=== PATIENT | male | born 2005 | race Caucasian/White ===

== ENCOUNTER 2025-04-25 16:55 | Emergency (ER) | payer SELFPAY ==
[2025-04-25 16:59] VITALS: BP 144/87; PULSE 115; RESP 18; TEMP 35.5; O2SAT 100
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
--- NOTE | 2025-04-25 17:10 | CT_ITS ---
PROCEDURE: BRAIN/HEAD WITHOUT CONTRAST; SPINE CERVICAL WITHOUT CONTRAS 04/25/2025 REASON FOR EXAM: HEAD TRAUMA; NECK TRAUMA TECHNIQUE: Procedure Code: CTBR; CTSPC Modality: CT Procedure: BRAIN/HEAD WITHOUT CONTRAST; SPINE CERVICAL WITHOUT CONTRAS Coronal and Sagittal reconstruction series were provided. One or more dose reduction techniques were used (e.g., Automated exposure control, adjustment of the mA and/or kV according to patient size, use of iterative reconstruction technique. COMPARISON: None available. FINDINGS: There is no extra-axial or intra-axial intracranial hemorrhage. No mass effect or midline shift is seen. The ventricles, sulci, and cisterns are normal in size and shape for the patient's age. There is normal garvey-white matter differentiation. The posterior fossa is grossly unremarkable. The skull is unremarkable. Opacification of the right frontal and bilateral ethmoid sinuses. The remaining visualized paranasal sinuses are clear. The mastoid air cells show normal translucency. The cervical alignment is intact. No acute cervical spine fracture is identified. The vertebral body heights are intact. No suspicious osseous lesions are identified. The craniocervical junction appears intact. There is no prevertebral soft tissue swelling. No significant degenerative changes are identified. The visualized lung apices are unremarkable. CT/Brain/Head without Contrast IMPRESSION: 1. No intracranial hemorrhage. No mass effect or midline shift. 2. No evidence of acute cervical spine fracture or malalignment. Reading Location[facility]
--- NOTE | 2025-04-25 17:10 | RAD_ITS ---
PROCEDURE: SHOULDER MIN 2 VIEWS 04/25/2025 REASON FOR EXAM: RIGHT SHOULDER PAIN TECHNIQUE: Procedure Code: RADSH Modality: DX Procedure: SHOULDER MIN 2 VIEWS Laterality: Right COMPARISON: None available. FINDINGS: Bones: No acute fractures or dislocations. Joints: Normal alignment of the acromioclavicular and glenohumeral joints. Soft tissues: Soft tissues are unremarkable. Other: Visualized lung baumann are unremarkable. RAD/Shoulder min 2 Views IMPRESSION: NO ACUTE FRACTURE OR DISLOCATION. Reading Location: [facility]
--- NOTE | 2025-04-25 17:10 | CT_ITS ---
PROCEDURE: BRAIN/HEAD WITHOUT CONTRAST; SPINE CERVICAL WITHOUT CONTRAS 04/25/2025 REASON FOR EXAM: HEAD TRAUMA; NECK TRAUMA TECHNIQUE: Procedure Code: CTBR; CTSPC Modality: CT Procedure: BRAIN/HEAD WITHOUT CONTRAST; SPINE CERVICAL WITHOUT CONTRAS Coronal and Sagittal reconstruction series were provided. One or more dose reduction techniques were used (e.g., Automated exposure control, adjustment of the mA and/or kV according to patient size, use of iterative reconstruction technique. COMPARISON: None available. FINDINGS: There is no extra-axial or intra-axial intracranial hemorrhage. No mass effect or midline shift is seen. The ventricles, sulci, and cisterns are normal in size and shape for the patient's age. There is normal garvey-white matter differentiation. The posterior fossa is grossly unremarkable. The skull is unremarkable. Opacification of the right frontal and bilateral ethmoid sinuses. The remaining visualized paranasal sinuses are clear. The mastoid air cells show normal translucency. The cervical alignment is intact. No acute cervical spine fracture is identified. The vertebral body heights are intact. No suspicious osseous lesions are identified. The craniocervical junction appears intact. There is no prevertebral soft tissue swelling. No significant degenerative changes are identified. The visualized lung apices are unremarkable. CT/Spine Cervical without Contras IMPRESSION: 1. No intracranial hemorrhage. No mass effect or midline shift. 2. No evidence of acute cervical spine fracture or malalignment. Reading Location[facility]
--- NOTE | 2025-04-25 17:14 | RAD_ITS ---
PROCEDURE: KNEE 4 OR MORE VIEWS 04/25/2025 REASON FOR EXAM: KNEE PAIN TECHNIQUE: Procedure Code: RADKN Modality: DX Procedure: KNEE 4 OR MORE VIEWS Laterality: Bilateral COMPARISON: None available. FINDINGS: Bones: No fracture. No suspicious bone lesion. Joints: Normal alignment. No significant degenerative changes. Effusion: No effusion. Soft tissues: Soft tissues are unremarkable. RAD/Knee 4 or More Views IMPRESSION: NO EFFUSION ACUTE FRACTURE OR DISLOCATION. Reading Location: [facility]
--- NOTE | 2025-04-25 17:14 | RAD_ITS ---
PROCEDURE: KNEE 4 OR MORE VIEWS 04/25/2025 REASON FOR EXAM: KNEE PAIN TECHNIQUE: Procedure Code: RADKN Modality: DX Procedure: KNEE 4 OR MORE VIEWS Laterality: Bilateral COMPARISON: None available. FINDINGS: Bones: No fracture. No suspicious bone lesion. Joints: Normal alignment. No significant degenerative changes. Effusion: No effusion. Soft tissues: Soft tissues are unremarkable. RAD/Knee 4 or More Views IMPRESSION: NO EFFUSION ACUTE FRACTURE OR DISLOCATION. Reading Location: [facility]
[2025-04-25] MEDS: fentaNYL 100 MCG/2 ML Ampul 50 MCG IV (17:28)
--- OUTSIDE RECORDS SUMMARY | 2025-04-25 17:42 | XMS RPT_ITS | CCD ---
Author Organization [facility]ini[facility] Care Team Providers Care Stave Hewer Name Role Phone Lele Garrido Attending Unavailable Care Physician, No Primary Primary Care Unava ilable SeeLele ingram Attending Unavailable Care Physician, No Primary Primary Care Unava ilable Lele Garrido Attending Unavailable Care Physician, No Primary Primary Care Unava ilable Lele Garrido Attending Unavailable Care Physician, No Primary Primary Care Unava ilable Care Physician, No Primary Primary Care Unava ilable Lele Garrido Attending Unavailable SeeLele ingram Attending Unavailable Care Physician, No Primary Primary Care Unava ilable Lele Garrido Attending Unavailable Care Physician, No Primary Primary Care Unava ilable SeeLele ingram Attending Unavailable Care Physician, No Primary Primary Care Unava ilable Lele Garrido Attending Unavailable Care Physician, No Primary Primary Care Unava ilable Problems Problem Classification Problem Date Documented Da te Episodic/Chronic Adjustment disorders (1 source) Adjustment disorder, unspecified; Translations: [Adjustment disorder, unspecified] Onset: 10-23-2023 Chronic Anxiety disorders (1 source) Generalized anxiety disorder; Translations: [Generalized anxiety disorder] Onset: 10-23-2023 Chronic Results Test Name Value Interpretation Reference Range Facil ity MR/BMS.BPon 11-26-2023 MR/BMS.BP [facility] [address], [address] [place] [address] OFFICE VISIT Date of Service: 11/26/23 MR#: [id number] Acct: [id number] Name: Leo Feilz Rep #: [id number] : 2005 Provider: Dr. Lele Dixon se, DO Age/Sex: 18/M Location: [facility].BP Status: Signed Intake Vital Signs 10/23/23 15:08 11/26/23 14:33 05/06/24 14:37 Height 5 ft 11 in 5 ft 11 in 5 ft 11 in BP 134/73 H Blood Pressure Location Rt brachial Position Sitting Pulse 108 H Pulse Source Monitor BP Intake Visit Reasons: 6 wk FU Silver Plater Required: No Accompanied by: Self Is patient in pain?: No Allergies No Known Allergies Allergy (Verified 11/26/23 14:38) Medications bupropion HCl 150 mg tablet,12 hr sustained-release 150 mg PO BID #60 ea 10/23/23 [Rx Confirmed 11/26/23] Nurse's Note: Presents to the office today for follow up. [facility] Medical History Adjustment disorder Allergies DAVID (generalized anxiety disorder) Headache History of emotional problems Vision problems Family History Other Alcoholism Anxiety Bleeding disorder CVA (cerebral vascular accident) Cancer Colon cancer Depression Hypertension Myocardial infarction Social History Smoking Status: Never smoker alcohol intake: current details: Occasional beer or liquor substance use type: marijuana HPI History of Present Illness History provided by: patient HPI: Leo Feliz is a 18 year old who presents today for follow up evaluation. Patient reports that they have picked up a few more days at work and has been covering for others when possible. Has enjoyed work and finds that it leads to better days. Finds that mood has been alright. Has been somewhat inconsistent when waking up too late or going to bed too early. Feels like it was better than XL version. Has had two appointments with [facility]. First appointment was all paperwork, and second appointment became overstimulated. This was in October, and has not heard back from them since. Was recommended to bring mom to next appointment. Denies any recent self harm. When playing with cat, the cat does scratch Leo and they don't do anything to stop from happening. Sleep has been somewhat worse but unsure why. Part might be due to playing more [employer]. Has stopped following at [facility]. Has been doing somewhat better in regards to sharing mood with others. Did spend some more one on one time with dad recently without mom near by, and this was positive. Still having some significant depersonalization but has been able to recognize it is happening most of the time. Review of Systems Constitutional Denies: fever(s), chills, change in weight or fatigue Eyes Denies: change in vision or blurry vision Ears, Nose, Mouth, Throat Denies: throat pain, neck pain or change in hearing Cardiovascular Denies: chest pain, palpitations or dyspnea Respiratory Denies: dyspnea, cough or wheezing Gastrointestinal Denies: abdominal pain, nausea, vomiting, diarrhea or constipation Genitourinary Denies: dysuria or urinary frequency Musculoskeletal Denies: back pain, neck pain, joint pain or muscle weakness Integumentary/Breast Denies: rash or new lesions Neurological Denies: headache(s), dizziness or confusion Endocrine Denies: fatigue or excessive sweating Hematologic/Lymphatic Denies: easy bruising or easy bleeding Allergic/Immunologic Denies: wheezing Exam Mental Status Exam - Psych Appearance casually dressed and unkempt Attitude cooperative Activity/Motor Behavior limited eye contact Speech regular rate, regular volume and regular prosody Mood other (better) Affect full range Thought Process logical, coherent, loose associations and derailment Thought Content no delusions and no hallucinations Suicidal Ideation none Homicidal Ideation none Attention impaired Concentration intact Sensorium/Orientation awake, alert and oriented x3 Memory/Cognition other (appropriate for stated age) Insight fair Judgement fair Exam Constitutional Documenting provider has reviewed patient's vital signs: yes Common normals: no acute distress, patient oriented x3 and alert General appearance: well developed Neuro Common normals: patient oriented x3 Sensorium/orientation: alert Gait (neuro): normal gait Assessment Plan Assessment Plan (1) DAVID (generalized anxiety disorder): Plan: - Awaiting neuropsych workup -Doing better with Wellbutrin SR twice a day; mood symptoms have largely been controlled (2) Adjustment disorder: Plan: - Continues to have intermittent mood concerns secondary to gender identity and other people in life (more content not included)... Normal [facility] MR/BMS.BPon 10-23-2023 MR/BMS.BP [address], [address] [place] [id number] OFFICE VISIT Date of Service: 10/23/23 MR#: [id number] Acct: [id number] Name: Leo Feliz Rep #: [id number] : 2005 Provider: Dr. Lele Dixon se, DO Age/Sex: 18/M Location: [facility].BP Status: Signed Intake Vital Signs 10/04/23 11:35 10/23/23 15:06 10/23/23 15:08 Height 5 ft 11 in 5 ft 11 in 5 ft 11 in BP 159/66 H 126/78 H Blood Pressure Location Rt brachial Rt brachial Position Sitting Sitting Pulse 126 H 113 H Pulse Source Monitor Monitor BP Intake Visit Reasons: Discuss med Silver Plater Required: No Accompanied by: Self Is patient in pain?: No Allergies No Known Allergies Allergy (Verified 10/23/23 15:07) Medications bupropion HCl 150 mg tablet,12 hr sustained-release 150 mg PO BID #60 ea 10/23/23 [Rx Confirmed 10/23/23] Nurse's Note: Presents to the office today to discuss medications. PFSH Medical History Adjustment disorder Allergies DAVID (generalized anxiety disorder) Headache History of emotional problems Vision problems Family History Other Alcoholism Anxiety Bleeding disorder CVA (cerebral vascular accident) Cancer Colon cancer Depression Hypertension Myocardial infarction Social History Smoking Status: Never smoker alcohol intake: current details: Occasional beer or liquor substance use type: marijuana HPI History of Present Illness History provided by: patient HPI: Leo Feliz is a 18 year old who presents today for new patient evaluation. Patient reports to seeing neighbor's truck blow up prior to appointment today. Finds that things have been shaky. Admits to feeling out of whack recently. Gives example of ordering food, having to wait to tow picker, and when they went home to eat, started getting overheated. States that everything got intense and smacked couch and self a few times in frustration. Used to be much more prevalent in the past in regards to self hitting. Admits to crying and asking God why can't I just eat one time. Feels like mood is very off or on. Has also been feeling more short breath. Has been following at [facility] and feels like therapist is focusing on smoking marijuana rather than gender identity or concern for autism spectrum. Leo thinks that therapist is focusing on this even when patient is 100% sober. Has been sleeping more hours than previously. Found out that they cannot be rehired at [facility]. Did have an interview at [employer] yesterday. Continues to have some intermittent depersonalization. Feels as though it may even happen more frequent than initially thought. Review of Systems Constitutional Denies: fever(s), chills, change in weight or fatigue Eyes Denies: change in vision or blurry vision Ears, Nose, Mouth, Throat Denies: throat pain, neck pain or change in hearing Cardiovascular Denies: chest pain, palpitations or dyspnea Respiratory Denies: dyspnea, cough or wheezing Gastrointestinal Denies: abdominal pain, nausea, vomiting, diarrhea or constipation Genitourinary Denies: dysuria or urinary frequency Musculoskeletal Denies: back pain, neck pain, joint pain or muscle weakness Integumentary/Breast Denies: rash or new lesions Neurological Denies: headache(s), dizziness or confusion Endocrine Denies: fatigue or excessive sweating Hematologic/Lymphatic Denies: easy bruising or easy bleeding Allergic/Immunologic Denies: wheezing Exam Mental Status Exam - Psych Appearance unkempt Attitude cooperative Activity/Motor Behavior fidgeting and limited eye contact Speech regular rate, regular volume and regular prosody Mood other (out of whack) Affect constricted Thought Process logical, coherent, loose associations and derailment Thought Content no delusions and no hallucinations Suicidal Ideation none Homicidal Ideation none Attention impaired Concentration intact Sensorium/Orientation awake, alert and oriented x3 Memory/Cognition other (appropriate for stated age) Insight fair Judgement fair Assessment Plan Assessment Plan (1) DAVID (generalized anxiety disorder): Plan: - Worsening mood symptoms with reduction, will increase to 150 mg wellbutrin SR BID. Hopefully BID dosing allows for improvement in cognitive symptoms and also improve mood symptoms - Rule out ADHD?, ASD?; Has neuropsych scheduled - Patient was informed of the risks, benefits and likely side effects of Wellbutrin. These side effects include but are not limited to appetite suppression, headache, diaphoresis, tachycardia, nausea, and insomnia. Wellbutrin can lower the seizure threshold, if you have a history of sei (more content not included)... Normal [facility] MR/BMS.BPon 10-04-2023 MR/BMS.BP [facility] [address] [place] [address] OFFICE VISIT Date of Service: 10/04/23 MR#: [id number] Acct: [id number] Name: Leo Feliz Rep #: [id number] : 2005 Provider: Dr. Lele Dixon se, DO Age/Sex: 17/M Location: [facility]BP Status: Signed Intake Vital Signs 07/04/23 11:41 10/04/23 11:35 10/04/23 11:35 Height 5 ft 11 in 5 ft 11 in 5 ft 11 in BP 159/66 H Blood Pressure Location Rt brachial Position Sitting Pulse 126 H Pulse Source Monitor BP Intake Visit Reasons: 3 M FU Silver Plater Required: No Accompanied by: Self Allergies No Known Allergies Allergy (Verified 07/04/23 11:41) Medications bupropion HCl 150 mg 24 hr tablet, extended release 150 mg PO QAM #30 tabs 10/04/23 [Rx Confirmed 10/04/23] Current gender identity: male Nurse's Note: Presents to the office today for follow up. PFSH Medical History Adjustment disorder Allergies DAVID (generalized anxiety disorder) Headache History of emotional problems Vision problems Family History Other Alcoholism Anxiety Bleeding disorder CVA (cerebral vascular accident) Cancer Colon cancer Depression Hypertension Myocardial infarction Social History Smoking Status: Never smoker alcohol intake: current details: Occasional beer or liquor substance use type: marijuana HPI History of Present Illness History provided by: patient HPI: Leo Feliz is an 17 year old who presents today for follow up evaluation. Patient is fairly disjointed and sometimes abruptly stop recounting history throughout encounter. Did recently have some stress going down to [place] helping sister out. They do not elaborate on what this means but does state that it was stressful. Does have an upcoming Neuropsych appointment scheduled in October. Has not contacted [facility] regarding gender affirming care yet. Finds that things have been not the best. Is trying to go back to [employer] since the person who they had issues with is gone. Quit [employer] about a month and a half ago. Has been staying with Phan, a friend. Has had a poor relationship with sister's boyfriend recently. Mother does not know that they quit [employer], and believes Leo had been working until yesterday. States that they didn't tell mom, because they don't want to disappoint her anymore or make her frustrated at them. Feels like they are not socializing as much as before. Has been taking Wellbutrin every day, and has felt that maybe they have been more paranoid. Described more as depersonalization, seeing themselves from others point of view. Review of Systems Constitutional Denies: fever(s), chills, change in weight or fatigue Eyes Denies: change in vision or blurry vision Ears, Nose, Mouth, Throat Denies: throat pain, neck pain or change in hearing Cardiovascular Denies: chest pain, palpitations or dyspnea Respiratory Denies: dyspnea, cough or wheezing Gastrointestinal Denies: abdominal pain, nausea, vomiting, diarrhea or constipation Genitourinary Denies: dysuria or urinary frequency Musculoskeletal Denies: back pain, neck pain, joint pain or muscle weakness Integumentary/Breast Denies: rash or new lesions Neurological Denies: headache(s), dizziness or confusion Endocrine Denies: fatigue or excessive sweating Hematologic/Lymphatic Denies: easy bruising or easy bleeding Allergic/Immunologic Denies: wheezing Exam Mental Status Exam - Psych Appearance unkempt Attitude other (Somewhat aloof) Activity/Motor Behavior fidgeting and limited eye contact Speech regular rate, regular volume and regular prosody Mood other (Stressed) Affect constricted Thought Process logical, coherent, loose associations and derailment Thought Content no delusions and no hallucinations Suicidal Ideation none Homicidal Ideation none Attention impaired Concentration intact Sensorium/Orientation awake, alert and oriented x3 Memory/Cognition other (appropriate for stated age) Insight fair Judgement fair Assessment Plan Assessment Plan (1) DAVID (generalized anxiety disorder): Plan: - We will reduce Wellbutrin 150 mg every day as patient does feel this may be causing worsening derealization/depersonali zation - Rule out ADHD?, ASD?; Has neuropsych scheduled - Patient was informed of the risks, benefits and likely side effects of Wellbutrin. These side effects include but are not limited to appetite suppression, headache, diaphoresis, tachycardia, nausea, and insomnia. Wellbutrin can lower the seizure threshold, if you have a history of seizure disorder or have a seizure while taking the medication, please disco (more content not included)... Normal [facility] MR/BMS.BPon 07-04-2023 MR/BMS.BP [facility] [address], [address] [place] [id number] OFFICE VISIT Date of Service: 07/04/23 MR#: [id number] Acct: [id number] Name: Leo Feliz Rep #: [id number] : 2005 Provider: Dr. Lele Dixon se, DO Age/Sex: 17/M Location: [facility]BP Status: Signed Intake Vital Signs 04/30/23 11:46 06/07/23 07:35 07/04/23 11:40 07/04/23 11:41 Height 5 ft 11 in 5 ft 11 in 5 ft 11 in 5 ft 11 in BP 128/85 H 143/80 H Blood Pressure Location Rt brachial Rt brachial Position Sitting Sitting Pulse 132 H 96 Pulse Source Monitor Monitor BP Intake Visit Reasons: 2 M FU Silver Plater Required: No Accompanied by: Self Is patient in pain?: No Allergies No Known Allergies Allergy (Verified 07/04/23 11:41) Medications bupropion HCl 300 mg 24 hr tablet, extended release 300 mg PO QAM #30 tabs 04/30/23 [Rx Confirmed 07/04/23] Current gender identity: male Nurse's Note: Presents to the office today for follow up. [facility] Medical History Adjustment disorder Allergies DAVID (generalized anxiety disorder) Headache History of emotional problems Vision problems Family History Other Alcoholism Anxiety Bleeding disorder CVA (cerebral vascular accident) Cancer Colon cancer Depression Hypertension Myocardial infarction Social History Smoking Status: Never smoker alcohol intake: current details: Occasional beer or liquor substance use type: marijuana HPI History of Present Illness History provided by: patient Chief complaint: Anxiety HPI: Leo Feliz is an 17 year old who presents today for follow up evaluation. Was unable to get scheduled for neuropsychology at this point. Mood has been pretty alright. Recently started at [employer] at [employer]. Working as a mitchell. Has been better than [employer]'s in regards to stress. Sister's boyfriend does work on Leo's shift, and is not supportive of Leo identifying as nonbinary, so this is stressful. Did recently split from their partner, but still is friends with them. Is working on paying back bank overdraft fees and then considering finding own place. Looking in to receiving gender affirming care. Review of Systems Constitutional Denies: fever(s), chills, change in weight or fatigue Eyes Denies: change in vision or blurry vision Ears, Nose, Mouth, Throat Denies: throat pain, neck pain or change in hearing Cardiovascular Denies: chest pain, palpitations or dyspnea Respiratory Denies: dyspnea, cough or wheezing Gastrointestinal Denies: abdominal pain, nausea, vomiting, diarrhea or constipation Genitourinary Denies: dysuria or urinary frequency Musculoskeletal Denies: back pain, neck pain, joint pain or muscle weakness Integumentary/Breast Denies: rash or new lesions Neurological Denies: headache(s), dizziness or confusion Endocrine Denies: fatigue or excessive sweating Hematologic/Lymphatic Denies: easy bruising or easy bleeding Allergic/Immunologic Denies: wheezing Exam Mental Status Exam - Psych Appearance unkempt Attitude other (Somewhat aloof) Activity/Motor Behavior hyperactive and limited eye contact Speech regular rate, regular volume and regular prosody Mood OK Affect constricted Thought Process linear, logical and coherent Thought Content no delusions and no hallucinations Suicidal Ideation none Homicidal Ideation none Attention impaired Concentration intact Sensorium/Orientation awake, alert and oriented x3 Memory/Cognition other (appropriate for stated age) Insight fair Judgement fair Assessment Plan Assessment Plan (1) DAVID (generalized anxiety disorder): Plan: - Continue wellbutrin 300 mg every day for mood - Rule out ADHD?, ASD?; Again recommend neuropsych eval patient has not yet scheduled with [facility], we will look into sending referral to [facility] - Patient was informed of the risks, benefits and likely side effects of Wellbutrin. These side effects include but are not limited to appetite suppression, headache, diaphoresis, tachycardia, nausea, and insomnia. Wellbutrin can lower the seizure threshold, if you have a history of seizure disorder or have a seizure while taking the medication, please discontinue the medication and inform office immediately. (2) Adjustment disorder: Plan: - Does experience distress related to family not accepting nature of patient's gender identity 07/05/23 0622 Date Lele Garrido DO Cosigner Signature: Date (if applicable) CC: [facility] MR/BMS.BPon 06-07-2023 MR/BMS.BP [facility] [address] [place] [address], [address] [place] [address] OFFICE VISIT Date of Service: 06/07/23 MR#: [id number] Acct: [id number] Name: Leo Feliz Rep #: [id number] : 2005 Provider: Dr. Lele Dixon se, DO Age/Sex: 17/M Location: [facility]BP Status: Signed Intake Vital Signs 04/30/23 11:46 06/07/23 07:33 06/07/23 07:35 Height 5 ft 11 in 5 ft 11 in 5 ft 11 in BP 128/85 H 139/85 H Blood Pressure Location Rt brachial Rt brachial Position Sitting Sitting Pulse 132 H 84 Pulse Source Monitor Monitor BP Intake Visit Reasons: follow up Silver Plater Required: No Accompanied by: Self Is patient in pain?: No Allergies No Known Allergies Allergy (Verified 06/07/23 07:36) Medications bupropion HCl 300 mg 24 hr tablet, extended release 300 mg PO QAM #30 tabs 04/30/23 [Rx Confirmed 06/07/23] Nurse's Note: Presents to the office today for follow up. [facility] Medical History (Updated 04/30/23 @ 12:[address] Lele Garrido DO) Adjustment disorder Allergies DAVID (generalized anxiety disorder) Headache History of emotional problems Vision problems Family History Other Alcoholism Anxiety Bleeding disorder CVA (cerebral vascular accident) Cancer Colon cancer Depression Hypertension Myocardial infarction Social History Smoking Status: Never smoker alcohol intake: current details: Occasional beer or liquor substance use type: marijuana HPI History of Present Illness History provided by: patient Chief complaint: Anxiety HPI: Leo Feliz is an 17 year old who presents today for follow up evaluation. Patient reports that they have been a bit better in recent past. Recently went to [place] to visit partner's other partner and was [employer]. Walked out of [employer] after being misgendered at work. Mom has encouraged patient to go to a [facility] based residential program for mental health. Dad was talking with a friend about patient, and his friend stated that Leo was in to [employer]. This upset patient. Recently established with Surendra at [facility] for personal counseling. Plans to go back to about 1x per week if available. Thinks that wellbutrin is helpful, but almost feels like they need a higher dose, but cannot fully quantify why. Reports to using big words at time as a way to buy himself time or leeway so he doesn't feel the pressure of getting things done. Review of Systems Constitutional Denies: fever(s), chills, change in weight or fatigue Eyes Denies: change in vision or blurry vision Ears, Nose, Mouth, Throat Denies: throat pain, neck pain or change in hearing Cardiovascular Denies: chest pain, palpitations or dyspnea Respiratory Denies: dyspnea, cough or wheezing Gastrointestinal Denies: abdominal pain, nausea, vomiting, diarrhea or constipation Genitourinary Denies: dysuria or urinary frequency Musculoskeletal Denies: back pain, neck pain, joint pain or muscle weakness Integumentary/Breast Denies: rash or new lesions Neurological Denies: headache(s), dizziness or confusion Endocrine Denies: fatigue or excessive sweating Hematologic/Lymphatic Denies: easy bruising or easy bleeding Allergic/Immunologic Denies: wheezing Exam Mental Status Exam - Psych Appearance unkempt Attitude other (Somewhat aloof) Activity/Motor Behavior hyperactive and limited eye contact Speech regular rate, regular volume and regular prosody Mood OK Affect constricted Thought Process linear, logical and coherent Thought Content no delusions and no hallucinations Suicidal Ideation none Homicidal Ideation none Attention impaired Concentration intact Sensorium/Orientation awake, alert and oriented x3 Memory/Cognition other (appropriate for stated age) Insight fair Judgement fair Assessment Plan Assessment Plan (1) DAVID (generalized anxiety disorder): Plan: - Continue wellbutrin 300 mg every day for mood - Rule out ADHD?, ASD?; will refer for neuropsych eval - Patient was informed of the risks, benefits and likely side effects of Wellbutrin. These side effects include but are not limited to appetite suppression, headache, diaphoresis, tachycardia, nausea, and insomnia. Wellbutrin can lower the seizure threshold, if you have a history of seizure disorder or have a seizure while taking the medication, please discontinue the medication and inform office immediately. (2) Adjustment disorder: Plan: - Mother has recommended [facility] residential treatment program, however discussed with patient that he is an adult with capacity for decision making so therefore so make decision based on personal goals and choices 06/07/23913 Date (more content not included)... Normal [facility] MR/BMS.BPon 04-30-2023 MR/BMS.BP [address], [address] [place] [address] OFFICE VISIT Date of Service: 04/30/23 MR#: [id number] Acct: [id number] Name: Leo Feliz Rep #: [id number] : 2005 Provider: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
[2025-04-25] MEDS: Cefazolin 2 GM in 0.9% Normal Saline (100mL Bag) 100 ML IV (17:45)
[2025-04-25 17:56] VITALS: BMI 23.5
[2025-04-25 17:57] LABS: Hematocrit 48.1 % (40-54); Hemoglobin 16.9 g/dL (13.0-16.5); Immature Granulocytes Count 0.070 X10^3/uL (0.0-0.0); Mean Corp Hgb Conc 35.1 g/dL (32-36); Mean Corpuscular Volume 89.1 fL (80-94); Mean Platelet Vol. 11.4 fl (6.2-12.0); NRBC Flagged by Analyzer 0 % (0-5); Platelet Count 272 K/mm3 (150-450); RBC Distribution Width CV 12.2 % (11.6-14.6); RBC Distribution Width SD 39.7 fl (35.1-43.9); Red Blood Count 5.40 M/mm3 (4.6-6.2); White Blood Count 12.4 K/mm3 (4.4-11.0)
[2025-04-25 18:00] VITALS: BP 138/77; PULSE 87; RESP 16; O2SAT 99
--- NOTE | 2025-04-25 18:20 | RAD_ITS ---
PROCEDURE: FOREARM 2 VIEWS 04/25/2025 REASON FOR EXAM: DEFORMITY TECHNIQUE: Procedure Code: RADFA Modality: DX Procedure: FOREARM 2 VIEWS Laterality: Right COMPARISON: None FINDINGS: Acute, comminuted, angulated and overlapped fracture in the midshaft of the radius with diffuse soft tissue swelling. There is varus angulation at the fracture site and a proximally 1 cm of overlap There are 2 separate fractures in the ulna. The 1st is in the proximal 3rd of the ulna and is nondisplaced the 2nd is a displaced angulated overlapped fracture in the midshaft. There is also varus angulation at the fracture site with overlap of a proximally 2.5 cm. There is anatomic alignment between the distal fracture fragment of the radius in the carpal bones. There is a slightly positive ulnar variance No demonstrated carpal or metacarpal fracture RAD/Forearm 2 Views IMPRESSION: Acute, comminuted, angulated, overlapped fracture of the midshaft of the radius with soft tissue swelling 2 separate fractures noted with a ulna 1 is nondisplaced in the proximal 3rd of the ulna the other is also a displaced angulated overlapped fracture in the midshaft. There is associated soft tissue swelling, no evidence of compound fracture through the skin Anatomic alignment between the distal fracture fragment of the radius in the ca rpal bones Positive ulnar variance Orthopedic surgery consultation recommended Reading Location: [id number]
[2025-04-25 18:34] LABS: AST(SGOT) 29 U/L (<=37); Alanine Aminotransfer ALT/SGPT 24 U/L (<=46); Albumin, Serum 4.9 g/dL (3.5-5.0); Alkaline Phosphatase 59 U/L (40-129); Anion Gap 18 (5-15); BUN 13 mg/dL (4-19); BUN/Creat Ratio 11.8 RATIO (10-20); Bilirubin, Direct 0.35 mg/dL (0.00-0.30); Calcium,Total 10.3 mg/dL (7.6-11.0); Carbon Dioxide 18.5 mmol/L (21.0-32.0); Chloride 102 mmol/L (98-108); Estimated Creatinine Clearance 114.09 ml/min (50-250); Globulin 2.8 g/dL (2.2-4.2); Glucose 163 mg/dL (70-99); Potassium 3.6 mmol/L (3.3-5.1)
[2025-04-25 20:00] VITALS: BP 174/71; PULSE 93; RESP 15; O2SAT 100
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
[2025-04-25 21:00] VITALS: BP 161/90; PULSE 84; RESP 16; O2SAT 100
[2025-04-25] MEDS: HYDROmorphone 0.5 MG/0.5 ML SYRINGE IV (21:40)
[2025-04-25 22:18] VITALS: BP 161/90; PULSE 84; RESP 16; TEMP 36.6; O2SAT 100
--- NOTE | 2025-04-25 22:18 | ED.RN ---
Report called to JUDITH Canales at [facility].
== END 2025-04-25 22:10 | disposition short-term general hospital (02) ==
LOC: ED 17:41
PROVIDERS: Emergency Provider Emergency Medicine; Visit Provider Emergency Medicine
DX: S52.201B Unspecified fracture of shaft of right ulna, initial encounter for open fracture type I or II (principal); S52.301B Unspecified fracture of shaft of right radius, initial encounter for open fracture type I or II; S40.211A Abrasion of right shoulder, initial encounter; S80.211A Abrasion, right knee, initial encounter; S80.212A Abrasion, left knee, initial encounter; V28.49XA Other motorcycle driver injured in noncollision transport accident in traffic accident, initial encounter; D72.829 Elevated white blood cell count, unspecified; F41.1 Generalized anxiety disorder; Z79.899 Other long term (current) drug therapy; Z23 Encounter for immunization
CPT/HCPCS: 70450; 72125; 73030; 73090; 73564; 80048; 80076; 85025; 90471; 90715; 96365; 96375; 96376; 99283; A4216